=== PATIENT | female | born 1995 | race African-American/Black ===

== ENCOUNTER → 2017-02-11 | Outpatient (CLI) | payer MEDICAID ==
[~2017-02-11] MED LIST: GADOBUTROL 10 ML VIAL IVP ONE
== END ==
LOC: FIMAGING 18:52
PROVIDERS: ATTEND Family Medicine
DX: R20.0 Anesthesia of skin (principal); R20.2 Paresthesia of skin
CPT/HCPCS: A9585

== ENCOUNTER 2017-03-07 13:34 | Emergency (ER) | payer MEDICAID ==
[2017-03-07 13:43] VITALS: BP 116/80; PULSE 96; RESP 16; TEMP 98.8; O2SAT 96
--- NOTE | 2017-03-07 14:01 | EDPHY ---
General Narrative: CHIEF COMPLAINT: Sore throat HISTORY OF PRESENT ILLNESS: Patient complains of sore throat that started on Thursday night into Thursday morning. Gradual onset. Constant duration. No chest pain. No fever. The throat has become severely painful to her. She is tolerating liquids only. No solids. She reports occasional cough. No runny nose. No sinus tenderness. No neck pain or stiffness. No headache. No dizziness. No abdominal or pelvic pain. No vaginal pain, bleeding or discharge. Admits to sexual activity including an oral sex. No other associated complaints or modifying factors. REVIEW OF SYSTEMS: Ten systems reviewed and are negative unless otherwise noted in the HPI PCP: None SPECIALISTS: None PAST MEDICAL HISTORY: None PAST SURGICAL HISTORY: None SOCIAL HISTORY: Nonsmoker. Works at [employer] FAMILY HISTORY: Noncontributory EXAMINATION General Appearance: Alert, no distress Head: normocephalic, atraumatic Eyes: Pupils equal and round, no conjunctival pallor or injection ENT, Mouth: Mucous membranes moist. Uvula is midline. There is erythema of the posterior pharynx. There is some a exudative appearance but no vesicles of the posterior pharynx, oral mucosa or lips. No trismus Neck: Normal inspection, supple, non-tender. Tender anterior cervical lymphadenopathy. No meningismus or rigidity. Respiratory: Lungs are clear to auscultation. No wheezing, rhonchi or crackles. Cardiovascular: Regular rate and rhythm. No murmur Gastrointestinal: Abdomen is soft and nontender. No distention Skin: Warm and dry, no rash. No petechiae purpura Extremities: Nontender, no pedal edema Psychiatric: Mood and affect normal DIFFERENTIAL DIAGNOSES: Including but not limited to viral pharyngitis, strep pharyngitis, bacterial pharyngitis, sexually transmitted infection MDM: 2:00 p.m. Sore throat since Thursday. Examination reveals acute pharyngitis that does not appear to be strep in etiology. She has no asymmetry or evidence of peritonsillar abscess. She has no edema of the airway. The airway is widely patent. Vital signs are within normal limits and she is in no acute distress. I have ordered throat swabs for strep pharyngitis, GC and Chlamydia. No vaginal complaints or pelvic pain. 3:15 p.m. Strep test is negative. I have re-evaluated the patient. Her airway remains widely patent. No difficulty managing his secretions. No need for supplemental oxygen or airway adjunct. Strep PCR testing will be reflexively commands. GC chlamydia testing are pending. I have discussed this at length with the patient regarding the possibility of viral versus strep versus other bacterial infection. I offered empiric coverage until these tests result, but she has declined. She does not want to take any antibiotics at this time. She prefers to be discharged home and await the reflex of testing and pending swabs. We discussed discharge home with anti-inflammatories, liquid diet with advancement as tolerated, and 1 extra dose of Decadron tomorrow morning. We discussed ED precautions. She is comfortable this plan and would like to be discharged home with no further treatment. SUPERVISION: Patient was independently examined, but I discussed the case with my secondary supervising physician Dr. Nuno - History Smoking Status: Never smoked - Objective Vital Signs: Initial Vital Signs Temperature (C) 98.8 F 03/07/17 13:41 Heart Rate 96 03/07/17 13:41 Respiratory Rate 16 03/07/17 13:41 Blood Pressure 116/80 03/07/17 13:41 O2 Sat (%) 96 03/07/17 13:41 O2 Delivery Mode Room Air Allergies/Adverse Reactions: No Known Allergies Allergy (Unverified 03/07/17 13:41) Home Medications: Medication Instructions Recorded Acetaminophen/Codeine 300/30Mg 1 each PO Q6 PRN #7 tab 03/07/17 [Tylenol #3 (*)] Bcp 03/07/17 Dexamethasone [Decadron 4 MG (*)] 8 mg PO DAILY #2 tab 03/07/17 IBUPROFEN 03/07/17 Medications Given: Discontinued Medications Dexamethasone (Decadron) 8 mg PO EDNOW ONE Stop: 03/07/17 14:28 Last Admin: 03/07/17 14:50 Dose: 8 mg Ibuprofen (Motrin) 600 mg PO EDNOW ONE Stop: 03/07/17 15:54 Last Admin: 03/07/17 15:55 Dose: 600 mg Departure - Departure Disposition: Home, Routine, Self-Care Clinical Impression: Acute pharyngitis Qualifiers: Pharyngitis/tonsillitis etiology: unspecified etiology Qualified Code(s): J02.9 - Acute pharyngitis, unspecified Condition: Good Instructions: Pharyngitis (ED) Additional Instructions: 1. Anti-inflammatories [id number] every 6-8 hours as discussed 2. Dexamethasone 8 mg x1 tomorrow morning 3. Clear liquid diet, advance slowly as tolerated 4. ED precautions as discussed Referrals: Seng Mathur MD [Medical Doctor] - As per Instructions Stand Alone Forms: Work Excuse Prescriptions: Acetaminophen/Codeine 300/30Mg [Tylenol #3 (*)] 1 each PO Q6 PRN #7 tab PRN Reason: Pain, Mild Dexamethasone [Decadron 4 MG (*)] 8 mg PO DAILY #2 tab
[2017-03-07] MEDS ORDERED: DEXAMETHASONE 4 MG TAB PO ONE (14:27)
[2017-03-07] MEDS ORDERED: IBUPROFEN 600 MG TAB PO ONE ×2 (15:51→15:53)
[2017-03-09 15:36] LABS: CHLAMYDIA AMPLIFICATION GENPRB NEGATIVE (NEGATIVE)
== END 2017-03-07 16:10 | disposition home or self-care (01) ==
DX: J02.9 Acute pharyngitis, unspecified (principal)